=== PATIENT | female | born 2000 | race Caucasian/White ===

== ENCOUNTER 2024-12-08 13:25 | Outpatient (CLI) | payer BC, SELFPAY ==
--- OUTSIDE RECORDS SUMMARY | 2024-10-25 23:54 | XMS_ITS | Encounter Summary ---
Author Organization Healthcare Address [address] [place] [address] Care Team Providers Care Merchandise Pickup/Receiving Associate Name Role Phone Fan Gilliam MD Primary Care Provider [phone] Reason for Visit * Reason Comments Difficulty Urinating Encounter Details Date Type Department Care Team (Late st Contact Info) Description 10/25/2024 11:54 PM EDT - 10/26/2024 2:16 AM EDT Emergency [facility] Emergency Department [address] [place] [address] Vaginal irritation (Primary Dx) Discharge Disposition: Home or Self Care Social History Tobacco Use Types Packs/Day Years Used Date Smoking Tobacco: Former Smokeless Tobacco: Never Tobacco Cessation:Counseling Given: Not Answered Comments No Sex and Gender Information Value Date Recorded Sex Assigned at Not on file Legal Sex Female 6:34 PM EDT Gender Identity Not on file Sexual Orientation Not on file documented as of this encounter Last Filed Vital Signs Vital Sign Reading Time Taken Comments Blood Pressure 139/100 10/25/2024 10:01 PM EDT Pulse 95 10/25/2024 10:01 PM EDT Temperature 36.8 C (98.2 F) 10/25/2024 10:01 PM EDT Respiratory Rate 18 10/25/2024 10:0 1 PM EDT Oxygen Saturation 98% 10/25/2024 10: 01 PM EDT Inhaled Oxygen Concentration - - Weight 62.5 kg (137 lb 12.6 oz) 025 12:13 AM EDT Height - - Body Mass Index 27.83 02/19/2018 8:42 AM EDT documented in this encounter Functional Status * Calculated C-SSRS Risk Score (Lifetime/Recent) Answer Date of Assessment Author No Risk Indicated 10/26/2024 12:12 AM EDT Khang Young RN * Question Answer Date of Assessment Author 1. Wish to be (Past 1 Month) No 12:12 AM EDT Khang Young RN 2. Non-Specific Active Suici phillip Thoughts (Past 1 Month) No 10/26/2024 12:12 AM EDT Khang Young RN 6. Suicidal Behavior (Lifetime) No 12:12 AM EDT Khang Young RN documented as of this encounter Discharge Instructions * Discharge Instructions* Bebeto Pena PA - 10/26/2024 2:00 AM EDT Please continue to manage your symptoms at home as we discussed. Otherwise, follow up with your PCP. Return to the nearest emergency department if you develop new or worsening symptoms. documented in this encounter Miscellaneous Notes * ED Provider Notes - Bebeto Pena PA - 10/25/2024 9:46 PM EDT Images from the original note were not included. - HPI Chief Complaint Patient presents with Difficulty Urinating Jamila Bowers is a 23 y.o. female who presents to the emergency department today with concern for dysuria and vaginal irritation. She also has noted some blood in her urine. She reports that she just ended her menstrual cycle. She reports that it is possible that she could have a sexually transmitted infection and would like to be tested today, however denies wanting treatment prior tohaving her results. She states that placing ice packs over the area improves her symptoms. She denies any fevers or vaginal discharge. She denies any flank pain. She otherwise has no acute complaintsat this time. History provided by: Patient marketing copywriter used: No Patient History Past Medical History[1] Surgical History[2] Family History[3] Social History[4] Allergies: Allergies[5] Physical Exam ED Triage Vitals [10/25/24 2201] Temp Heart Rate Resp BP 36.8 ??C (98.2 ??F) 95 18 (!) 139/100 SpO2 Temp Source Heart Rate Source Patient Position 98 % Oral Monitor Sitting BP Location FiO2 (%) Right arm -- Physical Exam Vitals and nursing note reviewed. Exam conducted with a clinic cma present. Constitutional: General: She is not in acute distress. Appearance: She is not ill-appearing, toxic-appearing or diaphoretic. HENT: Head: Normocephalic and atraumatic. Nose: No rhinorrhea. Mouth/Throat: Mouth: Mucous membranes are moist. Eyes: Extraocular Movements: Extraocular movements intact. Cardiovascular: Rate and Rhythm: Normal rate. Pulmonary: Effort: Pulmonary effort is normal. No respiratory distress. Abdominal: General: There is no distension. Palpations: Abdomen is soft. Tenderness: There is no abdominal tenderness. There is no guarding. Genitourinary: Labia: Right: No lesion. Left: No lesion. Comments: External labial erythema without any wounds or vesicular lesions noted, no obvious discharge Musculoskeletal: General: Normal range of motion. Cervical back: Normal range of motion and neck supple. No rigidity. Skin: General: Skin is warm and dry. Neurological: General: No focal deficit present. Mental Status: She is alert and oriented to person, place, and time. Psychiatric: Mood and Affect: Mood normal. Kimberly Coma Scale Score: 15 ED Course & MDM - Assessment: 23 y.o. female presents to ED with complaint of dysuria and vaginal irritation since earlier this morning. On arrival to the emergency department, the patient was awake, appropriately conversational, not inany acute distress, and nontoxic in appearance. Hypertensive, otherwise hemodynamically stable. examination performed with a clinic cma which shows some external labial erythema and signs of irritation, however no lesions or other obvious signs of infection. Labs and urinalysis obtained. Very mild leukocytosis, urine with 6-10 white blood cells, however negative nitrites and bacteria. Not consistent with a UTI. Chlamydia and gonorrhea swabs pending at this time, however the patient states that she prefers to wait for the swabs to return prior to starting treatment. I felt that this was appropriate. She was instructed on how to further manage her symptoms at home. She verbalized agreement and understanding of this plan. She was given strict return precautions, and discharged from the emergency department in stable condition. Differential Diagnosis: Nephrolithiasis, UTI, STI, vaginal candidiasis, vaginitis, among others. In order to fully explore the differential diagnosis the following treatments and tests were ordered: All Other Orders Ordered Status Ordering Provider 10/26/24 0034 Urinalysis Microscopic Examination Once Final result REBECCA LANDERS 10/26/24 0020 Chlamydia trachomatis DNA by PCR STAT In process BEBETO PENA 10/26/24 0020 Neisseria gonorrhea DNA by PCR STAT In process BEBETO PENA 10/26/24 0020 CBC w/diff STAT Final result BEBETO PENA 10/26/24 0020 CMP STAT Final result BEBETO PENA 10/26/24 0020 hCG qualitative STAT Final result BEBETO PENA 10/25/24 2202 Urinalysis with reflex microscopic AND reflex culture (IF UTI SUSPECTED) Once Final result REBECCA LANDERS 10/25/24 220 Urinalysis with reflex microscopic (Culture NOT Included) PROCEDURE ONCE Final result REBECCA LANDERS 10/25/24 220 Urine Eagle Panel PROCEDURE ONCE Final result REBECCA LANDERS ED Course as of 10/26/24 0232 Sun Oct 26, 2024 0041 WBC(!): 12.19 [ML] 0041 Hemoglobin: 13.6 [ML] 0041 Blood, Urine(!): Moderate [ML] 0041 Leukocytes, Urine(!): Moderate [ML] 0041 Nitrite, Urine: Negative [ML] 0048 Nitrite, Urine: Negative [ML] 0049 WBC, Urine(!): 6 - 10 [ML] 0049 Bacteria, Urine: Negative [ML] 0055 BUN(!): 6 [ML] 0055 Creatinine: 0.69 [ML] 0055 Test: Negative [ML] ED Course User Index [ML] Bebeto Pena PA Clinical Impressions as of 10/26/24 0232 Vaginal irritation Social Determinates of Health Risks (including Economic Stability, Education and level of understanding, Healthcare access and quality and concerning social factors): None identified on this visit Ultimately, this patient was Was discharged Home (Discharge) The encounter diagnosis was Vaginal irritation. . Patient was counseled on the diagnoses. Discharge medications if any are listed below. Listed medications are thought be either curative for listed diagnoses or will help control ongoing symptoms. Patient is requested to follow up with Patient's Primary Care Provider in order to obtain routine follow-up. Instructions on follow up as well as precautions to return to the ER provided verbally by the EM provider, as well as written in patients discharge education packet. ED Prescriptions None Discharge Instructions Please continue to manage your symptoms at home as we discussed. Otherwise, follow up with your PCP. Return to the nearest emergency department if you develop new or worsening symptoms. Disposition Discharge AVS (Prydeinig Snapshot) - Printed 10/26/2024 Follow-Ups: Follow up with Fan Gilliam MD; Please follow-up. - [1] Past Medical History: Diagnosis Date Personal history of other mental and behavioral disorders History of depression Personal history of other mental and behavioral disorders History of reactive attachment disorder Poisoning by propionic acid derivatives, accidental (unintentional), initial encounter Advil overdose [2] Past Surgical History: Procedure Laterality Date TONSILLECTOMY N/A Tonsillectomy from [employer] [3] Family History Problem Relation Name Age of Onset Diabetes Maternal Grandfather Diabetes Other [4] Tobacco Use Smoking status: Former Smokeless tobacco: Never [5] Allergies Allergen Reactions Sulfacetamide Unknown - Patient states they do not know rxn details Bebeto Pena PA 10/26/24 0232 Cosigned by More Calrson MD at 11/01/2024 4:39 PM EDT Associated attestation - More Carlson MD - 11/01/2024 4:39 PM EDT The patient was seen only by Advanced Practice Provider (SILVIANO), and care was reviewed with me. * ED Triage Notes - Tonya Blake RN - 10/25/2024 9:46 PM EDT Pt presents to the ER for possible hematuria, polyuria, and dysuria that started today. Just got off menstrual cycle. Denies of a fever. documented in this encounter Plan of Treatment Not on file documented as of this encounter Procedures Procedure Name Priority Date/Time Associated Diagnosis Comments CBC WITH AUTO DIFFERENTIAL STAT 10/26/2024 12:28 AM EDT TEST QUALITATIVE PLASMA STAT 10/26/2024 12:28 AM EDT COMPREHENSIVE METABOLIC PANEL, PLASMA STAT 10/26/2024 12:28 AM EDT CHLAMYDIA TRACHOMATIS DNA BY PCR STAT 10/26/2024 12:20 AM EDT NEISSERIA GONORRHEA DNA BY PCR STAT 10/26/2024 12:20 AM EDT URINALYSIS WITH REFLEX MICROSCOPIC AND CULTURE STAT 10/26/2024 12:15 AM EDT URINE EAGLE PANEL STAT 10/26/2024 12:1 5 AM EDT URINALYSIS MICROSCOPIC FOR UA REFLEX STAT 10/26/2024 12:15 AM EDT URINALYSIS WITH REFLEX MICROSCOPIC STAT 10/26/2024 12:15 AM EDT documented in this encounter Results * hCG qualitative (10/26/2024 12:28 AM EDT) Test Negative Negative 10/26/2024 12:53 AM EDT [facility] Blood Venous blood specimen / Unknown Venipuncture / Unknown 10/26/2024 12:28 AM EDT 10/26/2024 12:31 AM EDT Narrative [facility] - 10/26/2024 12:53 AM EDT Reference Range: Males and non- females: Negative. Bebeto PHAM LAB BLOOD ORDERABLES Final Result [facility] [address] [place] [address] * (ABNORMAL) CMP (10/26/2024 12:28 AM EDT) Glucose, Plasma 93 74 - 99 mg/dL 10/26/2024 12:53 AM EDT [facility] BUN, Plasma 6(L) 7 - 21 mg/dL 10/26/2024 12:53 AM EDT [facility] Creatinine, Plasma 0.69 0.60 - 1.10 mg/dL 10/26/2024 12:53 AM EDT [facility] BUN/Creatinine Ratio 9 10/26/2024 12:53 AM EDT [facility] Sodium, Plasma 138 136 - 145 mmol/L 10/26/2024 12:53 AM EDT [facility] Potassium, Plasma 3.8 3.6 - 4.9 mmol/L 10/26/2024 12:53 AM EDT [facility] Chloride, Plasma 102 97 - 107 mmol/L 10/26/2024 12:53 AM EDT [facility] CO2, Plasma 26 22 - 29 mmol/L 10/26/2024 12:53 AM EDT [facility] Anion Gap 10 6 - 16 mmol/L 10/26/2024 12:53 AM EDT [facility] Total Calcium, Plasma 9.9 8.9 - 10.2 mg/dL 10/26/2024 12:53 AM T [facility] Total Protein 7.5 6.3 - 7.9 g/dL 10/26/2024 12:53 AM T [facility] Albumin, Plasma 4.8 3.5 - 5.2 g/dL 10/26/2024 12:53 AM T [facility] AST, Plasma 14 10 - 35 U/L 10/26/2024 12:53 AM T [facility] ALT, Plasma 13 10 - 35 U/L 10/26/2024 12:53 AM T [facility] Alkaline Phosphatase, Plasma 83 35 - 104 U/L 10/26/2024 12:53 AM T [facility] Total Bilirubin, Plasma 0.3 0.2 - 1.1 mg/dL 10/26/2024 12:53 AM T [facility] eGFRcr 123.7 mL/min/1.7 3m*2 10/26/2024 12:53 AM T [facility] Comment:Reported eGFRcr in m L/min/1.73m2 is based the CKD-EPI 2020 equation that does not use a race coefficient. Blood Venous blood specimen / Unknown Venipuncture / Unknown 10/26/2024 12:28 AM EDT 10/26/2024 12:31 AM EDT Bebeto PHAM LAB BLOOD ORDERABLES Final Result [facility] [address] [place] [address] * (ABNORMAL) CBC w/diff (10/26/2024 12:28 AM EDT) WBC Count 12.19(H) 3.70 - 10.30 10*3/uL LAB HEMATOLOGY METHOD 10/26/2024 12:33 AM EDT [facility] RBC Count 4.23 3.90 - 5.20 10*6/uL LAB HEMATOLOGY METHOD 10/26/2024 12:33 AM EDT [facility] HGB 13.6 11.2 - 15.7 g/dL LAB HEMATOLOGY METHOD 10/26/2024 12:33 AM EDT [facility] HCT 40.2 34.0 - 45.0 % LAB HEMATOLOGY METHOD 10/26/2024 12:33 AM EDT [facility] Platelet Count 323 155 - 369 10*3/uL LAB HEMATOLOGY METHOD 10/26/2024 12:33 AM EDT [facility] MCV 95 79 - 98 fL LAB HEMATOLOGY METHOD 10/26/2024 12:33 AM EDT [facility] MCH 32.2(H) 26.0 - 32.0 pg LAB HEMATOLOGY METHOD 10/26/2024 12:33 AM EDT [facility] MCHC 33.8 30.7 - 35.5 g/dL LAB HEMATOLOGY METHOD 10/26/2024 12:33 AM EDT [facility] RDW 12.5 11.5 - 14.5 % LAB HEMATOLOGY METHOD 10/26/2024 12:33 AM EDT [facility] MPV 9.9 8.8 - 12.5 fL LAB HEMATOLOGY METHOD 10/26/2024 12:33 AM EDT [facility] nRBC 0.0 <=0.0 per 100 WBCs LAB HEMATOLOGY METHOD 10/26/2024 12:33 AM EDT [facility] Differential Type Automated LAB HEMATOLOGY METHOD 10/26/2024 12:33 AM EDT [facility] Neutrophils % 63 % LAB HEMATOLOGY METHOD 10/26/2024 12:33 AM EDT [facility] Lymphocytes % 29 % LAB HEMATOLOGY METHOD 10/26/2024 12:33 AM EDT [facility] Monocytes % 7 % LAB HEMATOLOGY METHOD 10/26/2024 12:33 AM EDT [facility] Eosinophils % 1 % LAB HEMATOLOGY METHOD 10/26/2024 12:33 AM EDT [facility] Basophils % 0 % LAB HEMATOLOGY METHOD 10/26/2024 12:33 AM EDT [facility] Immature Granulocytes % 0 % LAB HEMATOLOGY METHOD 10/26/2024 12:33 AM EDT [facility] Neutrophils Absolute 7.67(H) 1.60 - 6.10 10*3/uL LAB HEMATOLOGY METHOD 10/26/2024 12:33 AM EDT [facility] Lymphocytes Absolute 3.49 1.20 - 3.90 10*3/uL LAB HEMATOLOGY METHOD 10/26/2024 12:33 AM EDT [facility] Monocytes Absolute 0.82 0.30 - 0.90 10*3/uL LAB HEMATOLOGY METHOD 10/26/2024 12:33 AM EDT [facility] Eosinophils Absolute 0.12 0.00 - 0.50 10*3/uL LAB HEMATOLOGY METHOD 10/26/2024 12:33 AM EDT [facility] Basophils Absolute 0.04 0.00 - 0.10 10*3/uL LAB HEMATOLOGY METHOD 10/26/2024 12:33 AM EDT [facility] Immature Granulocytes Absolute 0.05 0.00 - 0.06 10*3/uL LAB HEMATOLOGY METHOD 10/26/2024 12:33 AM EDT [facility] Blood Venous blood specimen / Unknown Venipuncture / Unknown 10/26/2024 12:28 AM EDT 10/26/2024 12:31 AM EDT Narrative [facility] - 10/26/2024 12:33 AM EDT Therapeutic decision making should be based on absolute values, rather than percentages. Bebeto PHAM LAB BLOOD ORDERABLES Final Result [facility] [address] [place] [address] * Neisseria gonorrhea DNA by PCR (10/26/2024 12:20 AM EDT) Neisseria gonorrhea DNA PCR Result Not Detected Not Detected. 10/27/2024 12:54 PM EDT [facility] Urine Urine specimen obtained by clean catch procedure / Unknown Non-blood Collection / Unknown 10/26/2024 12:20 AM EDT 10/26/2024 12:32 AM EDT Narrative [facility] - 10/27/2024 12:54 PM EDT This test is performed by the [employer] instrument for Real Time PCR C. trachomatis and N. gonorrhea. This test is FDA approved for use with endocervical, vaginal, and urine specimens. This test is used for clinical purposes. It should not be regarded as invesigational or for research. The [facility] Clinical Microbiology Laboratory is certified under the Clinical Laboratory Improvement Amendments of 1988 (CLIA-88) as qualified to perform high complexity clinical laboratory testing. Bebeto PHAM [facility] MICROBIOLOGY - GENERAL ORDERABLES Final Result Performing Organization Address [facility] [place] [address] * Chlamydia trachomatis DNA by PCR (10/26/2024 12:20 AM EDT) Chlamydia trachomatis DNA PCR Result Not Detected Not Detected 10/27/2024 12:54 PM EDT [facility][1] Urine Urine specimen obtained by clean catch procedure / Unknown Non-blood Collection / Unknown 10/26/2024 12:20 AM EDT 10/26/2024 12:32 AM EDT Narrative [facility][1] - 10/27/2024 12:54 PM EDT This test is performed by the [employer] m2000 instrument for Real Time PCR C. trachomatis and N. gonorrhea. This test is FDA approved for use with endocervical, vaginal, and urine specimens. This test is used for clinical purposes. It should not be regarded as invesigational or for research. The [facility] Clinical Microbiology Laboratory is certified under the Clinical Laboratory Improvement Amendments of 1988 (CLIA-88) as qualified to perform high complexity clinical laboratory testing. Bebeto PHAM LAB MICROBIOLOGY - GENERAL ORDERABLES Final Result Performing Organization Address [facility] Co de Phone Number [facility][1] [address] [place] [address] * Urinalysis Microscopic Examination (10/26/2024 12:15 AM EDT) Urine Urine specimen obtained by clean catch procedure / Unknown Non-blood Collection / Unknown 10/26/2024 12:15 AM EDT 10/26/2024 12:31 AM EDT us Rebecca Landers MD LAB URINE ORDERABLES Final Resul t Performing Organization Address City/[facility] Co de Phone Number [facility] [address] [place] [address] * Urine Eagle Panel (10/26/2024 12:15 AM EDT) Extra Reflex urine culture not indicated 10/26/2024 2:01 AM EDT [facility] Urine Urine specimen obtained by clean catch procedure / Unknown Non-blood Collection / Unknown 10/26/2024 12:15 AM EDT 10/26/2024 12:31 AM EDT us Rebecca Landers MD LAB URINE ORDERABLES Final Resul t Performing Organization Address [facility] Phone Number [facility] [address] [place] [address] * (ABNORMAL) Urinalysis with reflex microscopic (Culture NOT Included) (10/26/2024 12:15 AM EDT) Color, Urine Yellow LAB URINALYSIS - AUTOMATED METHOD 10/26/2024 12:47 AM EDT [facility] Clarity, Urine Clear LAB URINALYSIS - AUTOMATED METHOD 10/26/2024 12:47 AM EDT [facility] Spec [place], Urine <1.005(L) 1.005 - 1.030 LAB URINALYSIS - AUTOMATED METHOD 10/26/2024 12:47 AM EDT [facility] pH, Urine 7.0 5.0 - 8.0 LAB URINALYSIS - AUTOMATED METHOD 10/26/2024 12:47 AM EDT [facility] Protein, Urine Negative Negative mg/dL LAB URINALYSIS - AUTOMATED METHOD 10/26/2024 12:47 AM EDT [facility] Glucose, Urine Negative Negative mg/dL LAB URINALYSIS - AUTOMATED METHOD 10/26/2024 12:47 AM EDT [facility] Ketones, Urine Negative Negative mg/dL LAB URINALYSIS - AUTOMATED METHOD 10/26/2024 12:47 AM EDT [facility] Blood, Urine Moderate(A) Negative LAB URINALYSIS - AUTOMATED METHOD 10/26/2024 12:47 AM EDT [facility] Bilirubin, Urine Negative Negative LAB URINALYSIS - AUTOMATED METHOD 10/26/2024 12:47 AM EDT [facility] Urobilinogen, Urine 0.2 0.2 to 1.0 mg/dL LAB URINALYSIS - AUTOMATED METHOD 10/26/2024 12:47 AM EDT [facility] Leukocytes, Urine Moderate(A) Negative LAB URINALYSIS - AUTOMATED METHOD 10/26/2024 12:47 AM EDT [facility] Nitrite, Urine Negative Negative LAB URINALYSIS - AUTOMATED METHOD 10/26/2024 12:47 AM EDT [facility] RBC, Urine 3 0 to 3 /HPF 10/26/2024 12:47 AM EDT [facility] Comment:This result was prev iously suppressed from the chart. WBC, Urine 6 - 10(A) 0 to 5 /HPF 10/26/2024 12:47 AM EDT [facility] Comment:This result was prev iously suppressed from the chart. Squamous Epithelial Cells 0 - 2 0 to 5 /HPF 10/26/2024 12:47 AM EDT [facility] Comment:This result was prev iously suppressed from the chart. Hyaline Casts 0 - 2 0 to 5 /LPF 10/26/2024 12:47 AM EDT [facility] Comment:This result was prev iously suppressed from the chart. Bacteria, Urine Negative Negative 10/26/2024 12:47 AM EDT [facility] Comment:This result was prev iously suppressed from the chart. Urine Urine specimen obtained by clean catch procedure / Unknown Non-blood Collection / Unknown 10/26/2024 12:15 AM EDT 10/26/2024 12:31 AM EDT Narrative [facility] - 10/26/2024 12:47 AM EDT Performed by manual method us Rebecca Landers MD LAB URINE ORDERABLES Final Resul t [facility] [address] [place] [address] documented in this encounter Visit Diagnoses Diagnosis Vaginal irritation- Primary Pruritus of genital organs documented in this encounter Care Teams Merchandise Pickup/Receiving Associate Relationship Specialty Start Date End Date Fan Gilliam MD [address] [place] [address] [address] [place] [id number] PCP - General 09/03/20 documented as of this encounter
--- OUTSIDE RECORDS SUMMARY | 2024-12-10 09:55 | XMS_ITS | Patient Health Record ---
Author Organization [facility] Address [address] [place] [address] Support Name Relationship Address Phone Patel Bowers Emergency Contact [address] [place] [address] Jamila Bowers Guarantor Unknown Reason For Referral No Information Problems Problem Type SNOMED Code ICD Code Onset Dates Problem Status W/U Status Risk Notes Problem Fibromyalgia (182178749) Fibromyalgia (M79.7) Active confirmed Problem Urge incontinence of urine (66275957) Urge incontinence (N39.41) Active confirmed Problem Moderate recurrent major depression (55587390) Moderate episode of recurrent major depressive disorder (F33.1) Active confirmed Problem Pain in female genitalia on intercourse (30927687) Dyspareunia in female (N94.10) Active confirmed Problem Generalized anxiety disorder (54688469) LUCILLE (generalized anxiety disorder) (F41.1) Active confirmed Problem Postural orthostatic tachycardia syndrome (disorder) (803678871) POTS (postural orthostatic tachycardia syndrome) (I49.8) Active confirmed Plan Of Treatment No Information
--- OUTSIDE RECORDS SUMMARY | 2024-12-10 09:55 | XMS_ITS | Clinical Summary ---
Author Organization Healthcare Address [address] [place] [address] Care Team Providers Care Machine Tool Operator Name Role Phone Fan Gilliam MD Primary Care Provider [phone] Allergies Active Allergy Reactions Criticality Noted Date Comments Sulfacetamide Unknown - Patient st ates they do not know rxn details Low 02/19/2018 Encounters Date Type Department Care Team Description 10/25/2024 11:54 PM EDT - 10/26/2024 2:16 AM EDT Emergency [facility] Emergency Department [address] [place] [address] Vaginal irritation (Primary Dx) Discharge Disposition: Home or Self Care 10/25/2024 Travel from Last 3 Months Family History Medical History Relation Name Comments Diabetes Maternal Grandfather Diabetes Other Relation Name Status Comments Maternal Grandfather Other Social History Tobacco Use Types Packs/Day Years Used Date Smoking Tobacco: Former Smokeless Tobacco: Never Tobacco Cessation:Counseling Given: Not Answered Comments No Sex and Gender Information Value Date Recorded Sex Assigned at Not on file Legal Sex Female 6:34 PM EDT Gender Identity Not on file Sexual Orientation Not on file Last Filed Vital Signs Vital Sign Reading [...] 12.6 oz) 025 12:13 AM EDT Height 149.9 cm (4' 11 ) 02/19/2018 8:42 AM EDT Body Mass Index 27.83 02/19/2018 8:42 AM EDT Plan of Treatment Not on file Procedures Procedure Name Priority Date/Time Associated Diagnosis Comments TEST QUALITATIVE PLASMA STAT 10/26/2024 12:28 AM EDT COMPREHENSIVE METABOLIC PANEL, PLASMA STAT 10/26/2024 12:28 AM EDT CBC WITH AUTO DIFFERENTIAL STAT 10/26/2024 12:28 AM EDT NEISSERIA GONORRHEA DNA BY PCR STAT 10/26/2024 12:20 AM EDT CHLAMYDIA TRACHOMATIS DNA BY PCR STAT 10/26/2024 12:20 AM EDT URINALYSIS MICROSCOPIC FOR UA REFLEX STAT 10/26/2024 12:15 AM EDT URINE EAGLE PANEL STAT 10/26/2024 12:1 5 AM EDT URINALYSIS WITH REFLEX MICROSCOPIC STAT 10/26/2024 12:15 AM EDT URINALYSIS WITH REFLEX MICROSCOPIC AND CULTURE STAT 10/26/2024 12:15 AM EDT from Last 3 Months Results * (ABNORMAL) CBC w/diff (10/26/2024 12:28 AM EDT) WBC Count 12.19(H) 3.70 - 10.30 10*3/uL LAB HEMATOLOGY METHOD 10/26/2024 12:33 AM EDT [facility] RBC Count 4.23 3.90 - 5.20 10*6/uL LAB HEMATOLOGY METHOD 10/26/2024 12:33 AM EDT [facility] HGB 13.6 11.2 - 15.7 g/dL LAB HEMATOLOGY METHOD 10/26/2024 12:33 AM EDT [facility] HCT 40.2 34.0 - 45.0 % LAB HEMATOLOGY METHOD 10/26/2024 12:33 AM EDT [facility] Platelet Count 323 155 - 369 10*3/uL LAB HEMATOLOGY METHOD 10/26/2024 12:33 AM EDT [facility] MCV 95 79 - 98 fL LAB HEMATOLOGY METHOD 10/26/2024 12:33 AM EDT [facility] MCH 32.2(H) 26.0 - 32.0 pg LAB HEMATOLOGY METHOD 10/26/2024 12:33 AM EDT [facility] MCHC 33.8 30.7 - 35.5 g/dL LAB HEMATOLOGY METHOD 10/26/2024 12:33 AM EDT [facility] RDW 12.5 11.5 - 14.5 % LAB HEMATOLOGY METHOD 10/26/2024 12:33 AM EDT [facility] MPV 9.9 8.8 - 12.5 fL LAB HEMATOLOGY METHOD 10/26/2024 12:33 AM EDT [facility] nRBC 0.0 <=0.0 per 100 WBCs LAB HEMATOLOGY METHOD 10/26/2024 12:33 AM EDT [facility] Differential Type Automated LAB HEMATOLOGY METHOD 10/26/2024 12:33 AM EDT [facility] Neutrophils % 63 % LAB HEMATOLOGY METHOD 10/26/2024 12:33 AM EDT [facility] Lymphocytes % 29 % LAB HEMATOLOGY METHOD 10/26/2024 12:33 AM EDT [facility] Monocytes % 7 % LAB HEMATOLOGY METHOD 10/26/2024 12:33 AM EDT [facility] Eosinophils % 1 % LAB HEMATOLOGY METHOD 10/26/2024 12:33 AM EDT [facility] Basophils % 0 % LAB HEMATOLOGY METHOD 10/26/2024 12:33 AM EDT [facility] Immature Granulocytes % 0 % LAB HEMATOLOGY METHOD 10/26/2024 12:33 AM EDT [facility] Neutrophils Absolute 7.67(H) 1.60 - 6.10 10*3/uL LAB HEMATOLOGY METHOD 10/26/2024 12:33 AM EDT [facility] Lymphocytes Absolute 3.49 1.20 - 3.90 10*3/uL LAB HEMATOLOGY METHOD 10/26/2024 12:33 AM EDT [facility] Monocytes Absolute 0.82 0.30 - 0.90 10*3/uL LAB HEMATOLOGY METHOD 10/26/2024 12:33 AM EDT [facility] Eosinophils Absolute 0.12 0.00 - 0.50 10*3/uL LAB HEMATOLOGY METHOD 10/26/2024 12:33 AM EDT [facility] Basophils Absolute 0.04 0.00 - 0.10 10*3/uL LAB HEMATOLOGY METHOD 10/26/2024 12:33 AM EDT [facility] Immature Granulocytes Absolute 0.05 0.00 - 0.06 10*3/uL LAB HEMATOLOGY METHOD 10/26/2024 12:33 AM EDT [facility] Blood Venous blood specimen / Unknown Venipuncture / Unknown 10/26/2024 12:28 AM EDT 10/26/2024 12:31 AM EDT Narrative [facility] - 10/26/2024 12:33 AM EDT Therapeutic decision making should be based on absolute values, rather than percentages. Mirela PHAM LAB BLOOD ORDERABLES Final Result Performing Organization Address City/[facility]/ZIP Co de Phone Number [facility] [address] [place] [address] * hCG qualitative (10/26/2024 12:28 AM EDT) Test Negative Negative 10/26/2024 12:53 AM EDT [facility] Blood Venous blood specimen / Unknown Venipuncture / Unknown 10/26/2024 12:28 AM EDT 10/26/2024 12:31 AM EDT Narrative [facility] - 10/26/2024 12:53 AM EDT Reference Range: Males and non- females: Negative. Mirela PHAM LAB BLOOD ORDERABLES Final Result Performing Organization Address City/[facility]/ZIP Co de Phone Number [facility] [address] [place] [address] * (ABNORMAL) CMP (10/26/2024 12:28 AM EDT) Glucose, Plasma 93 74 - 99 mg/dL 10/26/2024 12:53 AM EDT [facility] BUN, Plasma 6(L) 7 - 21 mg/dL 10/26/2024 12:53 AM EDT [facility] Creatinine, Plasma 0.69 0.60 - 1.10 mg/dL 10/26/2024 12:53 AM EDT [facility] BUN/Creatinine Ratio 9 10/26/2024 12:53 AM EDT [facility] Sodium, Plasma 138 136 - 145 mmol/L 10/26/2024 12:53 AM EDT [facility] Potassium, Plasma 3.8 3.6 - 4.9 mmol/L 10/26/2024 12:53 AM EDT [facility] Chloride, Plasma 102 97 - 107 mmol/L 10/26/2024 12:53 AM EDT [facility] CO2, Plasma 26 22 - 29 mmol/L 10/26/2024 12:53 AM EDT [facility] Anion Gap 10 6 - 16 mmol/L 10/26/2024 12:53 AM EDT [facility] Total Calcium, Plasma 9.9 8.9 - 10.2 mg/dL 10/26/2024 12:53 AM EDT [facility] Total Protein 7.5 6.3 - 7.9 g/dL 10/26/2024 12:53 AM EDT [facility] Albumin, Plasma 4.8 3.5 - 5.2 g/dL 10/26/2024 12:53 AM EDT [facility] AST, Plasma 14 10 - 35 U/L 10/26/2024 12:53 AM EDT [facility] ALT, Plasma 13 10 - 35 U/L 10/26/2024 12:53 AM EDT [facility] Alkaline Phosphatase, Plasma 83 35 - 104 U/L 10/26/2024 12:53 AM EDT [facility] Total Bilirubin, Plasma 0.3 0.2 - 1.1 mg/dL 10/26/2024 12:53 AM EDT [facility] eGFRcr 123.7 mL/min/1.7 3m*2 10/26/2024 12:53 AM EDT [facility] Comment:Reported eGFRcr in m L/min/1.73m2 is based the CKD-EPI 2020 equation that does not use a race coefficient. Blood Venous blood specimen / Unknown Venipuncture / Unknown 10/26/2024 12:28 AM EDT 10/26/2024 12:31 AM EDT us Mirela PHAM LAB BLOOD ORDERABLES Final Result [facility] [address] [place] [address] * Chlamydia trachomatis DNA by PCR (10/26/2024 12:20 AM EDT) Chlamydia trachomatis DNA PCR Result Not Detected Not Detected 10/27/2024 12:54 PM EDT [facility] Urine Urine specimen obtained by clean catch procedure / Unknown Non-blood Collection / Unknown 10/26/2024 12:20 AM EDT 10/26/2024 12:32 AM EDT Narrative [facility] - 10/27/2024 12:54 PM EDT This test is performed by the [email or web address] instrument for Real Time PCR C. trachomatis and N. gonorrhea. This test is FDA approved for use with endocervical, vaginal, and urine specimens. This test is used for clinical purposes. It should not be regarded as invesigational or for research. The [facility] Clinical Microbiology Laboratory is certified under the Clinical Laboratory Improvement Amendments of 1988 (CLIA-88) as qualified to perform high complexity clinical laboratory testing. Mirela PHAM LAB MICROBIOLOGY - GENERAL ORDERABLES Final Result Performing Organization Address City/State/[facility] Co de Phone Number [facility] [address] [place] [id number] * Neisseria gonorrhea DNA by PCR (10/26/2024 12:20 AM EDT) Neisseria gonorrhea DNA PCR Result Not Detected Not Detected. 10/27/2024 12:54 PM EDT [facility] Urine Urine specimen obtained by clean catch procedure / Unknown Non-blood Collection / Unknown 10/26/2024 12:20 AM EDT 10/26/2024 12:32 AM EDT Narrative [facility] - 10/27/2024 12:54 PM EDT This test is performed by the [employer] m2000 instrument for Real Time PCR C. trachomatis and N. gonorrhea. This test is FDA approved for use with endocervical, vaginal, and urine specimens. This test is used for clinical purposes. It should not be regarded as invesigational or for research. The [facility] Clinical Microbiology Laboratory is certified under the Clinical Laboratory Improvement Amendments of 1988 (CLIA-88) as qualified to perform high complexity clinical laboratory testing. Mirela PHAM LAB MICROBIOLOGY - GENERAL ORDERABLES Final Result Performing Organization Address City/[facility]/ZIP Co de Phone Number [facility] [address] [place] [address] * Urine Eagle Panel (10/26/2024 12:15 AM EDT) Extra Reflex urine culture not indicated 10/26/2024 2:01 AM EDT [facility] Urine Urine specimen obtained by clean catch procedure / Unknown Non-blood Collection / Unknown 10/26/2024 12:15 AM EDT 10/26/2024 12:31 AM EDT Rebecca Landers MD LAB URINE ORDERABLES Final Resul t Performing Organization Address [facility] Co de Phone Number [facility] [address] [place] [address] * Urinalysis Microscopic Examination (10/26/2024 12:15 AM EDT) Urine Urine specimen obtained by clean catch procedure / Unknown Non-blood Collection / Unknown 10/26/2024 12:15 AM EDT 10/26/2024 12:31 AM EDT Rebecca Landers MD LAB URINE ORDERABLES Final Resul t Performing Organization Address [facility] de Phone Number [facility] [address] [place] [address] * (ABNORMAL) Urinalysis with reflex microscopic (Culture NOT Included) (10/26/2024 12:15 AM EDT) Color, Urine Yellow LAB URINALYSIS - AUTOMATED METHOD 10/26/2024 12:47 AM EDT [facility] Clarity, Urine Clear LAB URINALYSIS - AUTOMATED METHOD 10/26/2024 12:47 AM EDT [facility] Spec [place], Urine <1.005(L) 1.005 - 1.030 LAB URINALYSIS - AUTOMATED METHOD 10/26/2024 12:47 AM EDT [facility] pH, Urine 7.0 5.0 - 8.0 LAB URINALYSIS - AUTOMATED METHOD 10/26/2024 12:47 AM EDT [facility] Protein, Urine Negative Negative mg/dL LAB URINALYSIS - AUTOMATED METHOD 10/26/2024 12:47 AM EDT [facility] Glucose, Urine Negative Negative mg/dL LAB URINALYSIS - AUTOMATED METHOD 10/26/2024 12:47 AM EDT [facility] Ketones, Urine Negative Negative mg/dL LAB URINALYSIS - AUTOMATED METHOD 10/26/2024 12:47 AM EDT [facility] Blood, Urine Moderate(A) Negative LAB URINALYSIS - AUTOMATED METHOD 10/26/2024 12:47 AM EDT [facility] Bilirubin, Urine Negative Negative LAB URINALYSIS - AUTOMATED METHOD 10/26/2024 12:47 AM EDT [facility] Urobilinogen, Urine 0.2 0.2 to 1.0 mg/dL LAB URINALYSIS - AUTOMATED METHOD 10/26/2024 12:47 AM EDT [facility] Leukocytes, Urine Moderate(A) Negative LAB URINALYSIS - AUTOMATED METHOD [facility], Urine Negative Negative [facility]ALYSIS - AUTOMATED METHOD [facility] RBC, Urine 3 0 to 3 /HPF 10/26/2024 12:47 AM EDT [facility] Comment:This result was prev iously suppressed from the chart. WBC, Urine 6 - 10(A) 0 to 5 /HPF 10/26/2024 12:47 AM EDT [facility] Comment:This result was prev iously suppressed from the chart. Squamous Epithelial Cells 0 - 2 0 to 5 /HPF 10/26/2024 12:47 AM EDT [facility] Comment:This result was prev iously suppressed from the chart. Hyaline Casts 0 - 2 0 to 5 /LPF 10/26/2024 12:47 AM EDT [facility] Comment:This result was prev iously suppressed from the chart. Bacteria, Urine Negative Negative 10/26/2024 12:47 AM EDT [facility] Comment:This result was prev iously suppressed from the chart. Urine Urine specimen obtained by clean catch procedure / Unknown Non-blood Collection / Unknown 10/26/2024 12:15 AM EDT 10/26/2024 12:31 AM EDT Narrative [facility] - 10/26/2024 12:47 AM EDT Performed by manual method us Rebecca Landers MD LAB URINE ORDERABLES Final Resul t [facility] [address] [place] [address] from Last 3 Months Insurance Care Teams Machine Tool Operator Relationship Specialty Start Date End Date Fan Gilliam MD [address] [place] [address] [address] [place] [id number] PCP - General 09/03/20
--- OUTSIDE RECORDS SUMMARY | 2024-12-10 09:55 | XMS_ITS | Encounter Summary ---
Author Organization Healthcare Address [address] [place] [address] Care Team Providers Care Nursing Educator Name Role Phone Fan Gilliam MD Primary Care Provider [phone] Encounter Details Date Type Department Care Team (Latest Contact Info) Description 10/25/2024 Travel Social History Tobacco Use Types Packs/Day Years Used Date Smoking Tobacco: Former Smokeless Tobacco: Never Comments No Sex and Gender Information Value Date Recorded Sex Assigned at Not on file Legal Sex Female 6:34 PM EDT Gender Identity Not on file Sexual Orientation Not on file documented as of this encounter Plan of Treatment Not on file documented as of this encounter Visit Diagnoses Not on filedocumented in this encounter Care Teams Nursing Educator Relationship Specialty Start Date End Date Fan Gilliam MD [address] [place] [address] [address] [place] [address] PCP - General 09/03/20 documented as of this encounter
== END 2024-12-08 23:59 | disposition home or self-care (01) ==
LOC: LAB.DROPOF 12-10 09:44
PROVIDERS: PCP Obstetrics & Gynecology; Visit Provider Obstetrics & Gynecology
DX: Z01.419 Encounter for gynecological examination (general) (routine) without abnormal findings (principal); N89.8 Other specified noninflammatory disorders of vagina
CPT/HCPCS: 87491; 87529; 87591; 87661; 87798; 87801

== ENCOUNTER 2024-12-15 11:06 | Outpatient (CLI) | payer BC, SELFPAY ==
--- OUTSIDE RECORDS SUMMARY | 2024-10-25 23:54 | XMS_ITS | Encounter Summary ---
Author Organization Healthcare Address [address] [place] [address] Care Team Providers Care Skin Toggler Name Role Phone Fan Gilliam MD Primary Care Provider [phone] Reason for Visit * Reason Comments Difficulty Urinating Encounter Details Date Type Department Care Team (Late st Contact Info) Description 10/25/2024 11:54 PM EDT - 10/26/2024 2:16 AM EDT Emergency [facility] Emergency Department [address] [place] [address] Vaginal irritation (Primary Dx) Discharge [...] complaintsat this time. History provided by: Patient rn document improvement specialist used: No Patient History Past Medical History[1] [...] nursing note reviewed. Exam conducted with a information systems analyst present. Constitutional: General: She is not in [...] time. Psychiatric: Mood and Affect: Mood normal. [place] Coma Scale Score: 15 ED Course & MDM - Assessment: 23 y.o. female presents to ED with complaint of dysuria and vaginal irritation since earlier this morning. On arrival to the emergency department, the patient was awake, appropriately conversational, not inany acute distress, and nontoxic in appearance. Hypertensive, otherwise hemodynamically stable. examination performed with a information systems analyst which shows some external labial erythema and [...] new or worsening symptoms. Disposition Discharge AVS (Latvian Snapshot) - Printed 10/26/2024 Follow-Ups: Follow up [...] Procedure Laterality Date TONSILLECTOMY N/A Tonsillectomy from Girl Meets Dress [3] Family History Problem Relation Name Age of Onset Diabetes Maternal Grandfather Diabetes Other [4] Tobacco Use Smoking status: Former Smokeless tobacco: Never [5] Allergies Allergen Reactions Sulfacetamide Unknown - Patient states they do not know rxn details Bebeto Pena PA 10/26/24 0232 Cosigned by More Carlson MD at 11/01/2024 4:39 PM EDT Associated [...] Test Negative Negative 10/26/2024 12:53 AM EDT [facility] Blood Venous blood specimen / Unknown Venipuncture / Unknown 10/26/2024 12:28 AM EDT 10/26/2024 12:31 AM EDT Narrative [facility] - 10/26/2024 12:53 AM EDT Reference Range: Males and non- females: Negative. Bebeto PHAM LAB BLOOD ORDERABLES Final Result [facility] [address] [place] [address] * (ABNORMAL) CMP (10/26/2024 12:28 AM EDT) Glucose, Plasma 93 74 - 99 mg/dL 10/26/2024 12:53 AM EDT [facility] BUN, Plasma 6(L) 7 - 21 mg/dL 10/26/2024 12:53 AM EDT [facility] Creatinine, Plasma 0.69 0.60 - 1.10 mg/dL 10/26/2024 12:53 AM EDT [facility] BUN/Creatinine Ratio 9 10/26/2024 12:53 AM EDT [facility] Sodium, Plasma 138 136 - 145 mmol/L 10/26/2024 12:53 AM EDT [facility] Potassium, Plasma 3.8 3.6 - 4.9 mmol/L 10/26/2024 12:53 AM EDT [facility] Chloride, Plasma 102 97 - 107 mmol/L 10/26/2024 12:53 AM EDT [facility] CO2, Plasma 26 22 - 29 mmol/L 10/26/2024 12:53 AM EDT [facility] Anion Gap 10 6 - 16 mmol/L 10/26/2024 12:53 AM EDT [facility] Total Calcium, Plasma 9.9 8.9 - 10.2 mg/dL 10/26/2024 12:53 AM T [facility] Total Protein 7.5 6.3 - 7.9 g/dL 10/26/2024 12:53 AM T [facility] Albumin, Plasma 4.8 3.5 - 5.2 g/dL 10/26/2024 12:53 AM T [facility] AST, Plasma 14 10 - 35 U/L 10/26/2024 12:53 AM T [facility] ALT, Plasma 13 10 - 35 U/L 10/26/2024 12:53 AM T [facility] Alkaline Phosphatase, Plasma 83 35 - 104 U/L 10/26/2024 12:53 AM T [facility] Total Bilirubin, Plasma 0.3 0.2 - 1.1 mg/dL 10/26/2024 12:53 AM T [facility] eGFRcr 123.7 mL/min/1.7 3m*2 10/26/2024 12:53 AM T [facility] Comment:Reported eGFRcr in m L/min/1.73m2 is based the CKD-EPI 2020 equation that does not use a race coefficient. Blood Venous blood specimen / Unknown Venipuncture / Unknown 10/26/2024 12:28 AM EDT 10/26/2024 12:31 AM EDT Bebeto PHAM LAB BLOOD ORDERABLES Final Result [facility] [address] [place] [address] * (ABNORMAL) CBC w/diff (10/26/2024 12:28 AM EDT) WBC Count 12.19(H) 3.70 - 10.30 10*3/uL LAB HEMATOLOGY METHOD 10/26/2024 12:33 AM EDT [facility] RBC Count 4.23 3.90 - 5.20 10*6/uL LAB HEMATOLOGY METHOD 10/26/2024 12:33 AM EDT [facility] HGB 13.6 11.2 - 15.7 g/dL LAB HEMATOLOGY METHOD 10/26/2024 12:33 AM EDT [facility] HCT 40.2 34.0 - 45.0 % LAB HEMATOLOGY METHOD 10/26/2024 12:33 AM EDT [facility] Platelet Count 323 155 - 369 10*3/uL LAB HEMATOLOGY METHOD 10/26/2024 12:33 AM EDT [facility] MCV 95 79 - 98 fL LAB HEMATOLOGY METHOD 10/26/2024 12:33 AM EDT [facility] MCH 32.2(H) 26.0 - 32.0 pg LAB HEMATOLOGY METHOD 10/26/2024 12:33 AM EDT [facility] MCHC 33.8 30.7 - 35.5 g/dL LAB HEMATOLOGY METHOD 10/26/2024 12:33 AM EDT [facility] RDW 12.5 11.5 - 14.5 % LAB HEMATOLOGY METHOD 10/26/2024 12:33 AM EDT [facility] MPV 9.9 8.8 - 12.5 fL LAB HEMATOLOGY METHOD 10/26/2024 12:33 AM EDT [facility] nRBC 0.0 <=0.0 per 100 WBCs LAB HEMATOLOGY METHOD 10/26/2024 12:33 AM EDT [facility] Differential Type Automated LAB HEMATOLOGY METHOD 10/26/2024 12:33 AM EDT [facility] Neutrophils % 63 % LAB HEMATOLOGY METHOD 10/26/2024 12:33 AM EDT [facility] Lymphocytes % 29 % LAB HEMATOLOGY METHOD 10/26/2024 12:33 AM EDT [facility] Monocytes % 7 % LAB HEMATOLOGY METHOD 10/26/2024 12:33 AM EDT [facility] Eosinophils % 1 % LAB HEMATOLOGY METHOD 10/26/2024 12:33 AM EDT [facility] Basophils % 0 % LAB HEMATOLOGY METHOD 10/26/2024 12:33 AM EDT [facility] Immature Granulocytes % 0 % LAB HEMATOLOGY METHOD 10/26/2024 12:33 AM EDT [facility] Neutrophils Absolute 7.67(H) 1.60 - 6.10 10*3/uL LAB HEMATOLOGY METHOD 10/26/2024 12:33 AM EDT [facility] Lymphocytes Absolute 3.49 1.20 - 3.90 10*3/uL LAB HEMATOLOGY METHOD 10/26/2024 12:33 AM EDT [facility] Monocytes Absolute 0.82 0.30 - 0.90 10*3/uL LAB HEMATOLOGY METHOD 10/26/2024 12:33 AM EDT [facility] Eosinophils Absolute 0.12 0.00 - 0.50 10*3/uL LAB HEMATOLOGY METHOD 10/26/2024 12:33 AM EDT [facility] Basophils Absolute 0.04 0.00 - 0.10 10*3/uL LAB HEMATOLOGY METHOD 10/26/2024 12:33 AM EDT [facility] Immature Granulocytes Absolute 0.05 0.00 - 0.06 10*3/uL LAB HEMATOLOGY METHOD 10/26/2024 12:33 AM EDT [facility] Blood Venous blood specimen / Unknown Venipuncture / Unknown 10/26/2024 12:28 AM EDT 10/26/2024 12:31 AM EDT Narrative [facility] - 10/26/2024 12:33 AM EDT Therapeutic decision making should be based on absolute values, rather than percentages. Bebeto PHAM LAB BLOOD ORDERABLES Final Result [facility] [address] [place] [address] * Neisseria gonorrhea DNA by PCR (10/26/2024 12:20 AM EDT) Neisseria gonorrhea DNA PCR Result Not Detected Not Detected. 10/27/2024 12:54 PM EDT [facility] Urine Urine specimen obtained by clean catch procedure / Unknown Non-blood Collection / Unknown 10/26/2024 12:20 AM EDT 10/26/2024 12:32 AM EDT Narrative [facility] - 10/27/2024 12:54 PM EDT This test is performed by the Clew instrument for Real Time PCR C. trachomatis and N. gonorrhea. This test is FDA approved for use with endocervical, vaginal, and urine specimens. This test is used for clinical purposes. It should not be regarded as invesigational or for research. [facility] is certified under the Clinical Laboratory Improvement Amendments of 1988 (CLIA-88) as qualified to perform high complexity clinical laboratory testing. Bebeto PHAM [facility] MICROBIOLOGY - GENERAL ORDERABLES Final Result Performing Organization Address [facility] [[email or web address]] [place] [address] * Chlamydia trachomatis DNA by PCR (10/26/2024 12:20 AM EDT) Chlamydia trachomatis DNA PCR Result Not Detected Not Detected 10/27/2024 12:[address] [facility] Urine Urine specimen obtained by clean catch procedure / Unknown Non-blood Collection / Unknown 10/26/2024 12:20 AM EDT 10/26/2024 12:[address] [facility] - 10/27/2024 12:54 PM EDT This test is performed by the Corona m2000 instrument for Real Time PCR C. trachomatis and N. gonorrhea. This test is FDA approved for use with endocervical, vaginal, and urine specimens. This test is used for clinical purposes. It should not be regarded as invesigational or for research. [facility] is certified under the Clinical Laboratory Improvement Amendments of 1988 (CLIA-88) as qualified to perform high complexity clinical laboratory testing. Bebeto PHAM LAB MICROBIOLOGY - GENERAL ORDERABLES Final Result Performing Organization Address [facility] [[email or web address]] Co de Phone Number [facility] [address] [place] [address] * Urinalysis Microscopic Examination (10/26/2024 12:15 AM EDT) Urine Urine specimen obtained by clean catch procedure / Unknown Non-blood Collection / Unknown 10/26/2024 12:15 AM EDT 10/26/2024 12:31 AM EDT us Rebecca Landers MD LAB URINE ORDERABLES Final Resul t Performing Organization Address City/[facility] [[email or web address]] Co de Phone Number [facility] [address] [place] [address] * Urine Eagle Panel (10/26/2024 12:15 AM EDT) Extra Reflex urine culture not indicated 10/26/2024 2:01 AM EDT [facility] Urine Urine specimen obtained by clean catch procedure / Unknown Non-blood Collection / Unknown 10/26/2024 12:15 AM EDT 10/26/2024 12:31 AM EDT us Rebecca Landers MD LAB URINE ORDERABLES Final Resul t Performing Organization Address [facility] Phone Number [facility] [address] [place] [address] * (ABNORMAL) Urinalysis with reflex microscopic (Culture NOT Included) (10/26/2024 12:15 AM EDT) Color, Urine Yellow LAB URINALYSIS - AUTOMATED METHOD 10/26/2024 12:47 AM EDT [facility] Clarity, Urine Clear LAB URINALYSIS - AUTOMATED METHOD 10/26/2024 12:47 AM EDT [facility] Spec [place], Urine <1.005(L) 1.005 - 1.030 LAB URINALYSIS - AUTOMATED METHOD 10/26/2024 12:47 AM EDT [facility] pH, Urine 7.0 5.0 - 8.0 LAB URINALYSIS - AUTOMATED METHOD 10/26/2024 12:47 AM EDT [facility] Protein, Urine Negative Negative mg/dL LAB URINALYSIS - AUTOMATED METHOD 10/26/2024 12:47 AM EDT [facility] Glucose, Urine Negative Negative mg/dL LAB URINALYSIS - AUTOMATED METHOD 10/26/2024 12:47 AM EDT [facility] Ketones, Urine Negative Negative mg/dL LAB URINALYSIS - AUTOMATED METHOD 10/26/2024 12:47 AM EDT [facility] Blood, Urine Moderate(A) Negative LAB URINALYSIS - AUTOMATED METHOD 10/26/2024 12:47 AM EDT [facility] Bilirubin, Urine Negative Negative LAB URINALYSIS - AUTOMATED METHOD 10/26/2024 12:47 AM EDT [facility] Urobilinogen, Urine 0.2 0.2 to 1.0 mg/dL LAB URINALYSIS - AUTOMATED METHOD 10/26/2024 12:47 AM EDT [facility] Leukocytes, Urine Moderate(A) Negative LAB URINALYSIS - AUTOMATED METHOD 10/26/2024 12:47 AM EDT [facility] Nitrite, Urine Negative Negative LAB URINALYSIS - AUTOMATED METHOD 10/26/2024 12:47 AM EDT [facility] RBC, Urine 3 0 to 3 /HPF 10/26/2024 12:47 AM EDT [facility] Comment:This result was prev iously suppressed from the chart. WBC, Urine 6 - 10(A) 0 to 5 /HPF 10/26/2024 12:47 AM EDT [facility] Comment:This result was prev iously suppressed from the chart. Squamous Epithelial Cells 0 - 2 0 to 5 /HPF 10/26/2024 12:47 AM EDT [facility] Comment:This result was prev iously suppressed from the chart. Hyaline Casts 0 - 2 0 to 5 /LPF 10/26/2024 12:47 AM EDT [facility] Comment:This result was prev iously suppressed from the chart. Bacteria, Urine Negative Negative 10/26/2024 12:47 AM EDT [facility] Comment:This result was prev iously suppressed from the chart. Urine Urine specimen obtained by clean catch procedure / Unknown Non-blood Collection / Unknown 10/26/2024 12:15 AM EDT 10/26/2024 12:31 AM EDT Narrative [facility] - 10/26/2024 12:47 AM EDT Performed by manual method us Rebecca Landers MD LAB URINE ORDERABLES Final Resul t [facility] [address] [place] [address] documented in this encounter Visit Diagnoses Diagnosis Vaginal irritation- Primary Pruritus of genital organs documented in this encounter Care Teams Skin Toggler Relationship Specialty Start Date End Date Fan Gilliam MD [address] [place] [address] #1 [address] [place] [id number] PCP - General 09/03/20 documented as of this encounter
[2024-12-15 11:37] LABS: Hematocrit 43.1 % (37.0-47.0); Hemoglobin 14.3 g/dL (12.2-16.2); Immature Granulocytes % 0.3 %; Mean Corpuscular HGB Conc 33.2 g/dL (31.8-35.4); Mean Corpuscular Hemoglobin 31.8 pg (27.0-31.2); Mean Corpuscular Volume 96.0 fl (81-99); Nucleated Red Blood Cells % 0 %; Platelet Count 308 K/mm3 (142-424); Red Blood Count 4.49 M/mm3 (4.20-5.40); Red Cell Distribution Width-SD 46.2 fL; White Blood Count 8.0 K/mm3 (4.8-10.8)
--- OUTSIDE RECORDS SUMMARY | 2024-12-15 11:53 | XMS_ITS | Encounter Summary ---
Author Organization Healthcare Address [address] [place] [address] Care Team Providers Care Racecourse Barrier Attendant Name Role Phone Fan Gilliam MD Primary Care Provider [phone] Encounter Details Date Type Department Care Team [...] on filedocumented in this encounter Care Teams Racecourse Barrier Attendant Relationship Specialty Start Date End Date Fan Gilliam MD [address] [place] [address] [address] [place] [address] PCP - General 09/03/20 documented as of this encounter
--- OUTSIDE RECORDS SUMMARY | 2024-12-15 11:54 | XMS_ITS | Patient Health Record ---
Author Organization [facility] Address [address] [place] [address] Support Name Relationship Address Phone Patel Bowers Emergency Contact [address] [place] [address] Jamila Bowers Guarantor Unknown Reason For Referral No Information Problems Problem Type SNOMED Code ICD Code Onset Dates Problem Status W/U Status Risk Notes Problem Fibromyalgia (424002623) Fibromyalgia (M79.7) Active confirmed Problem Urge incontinence of urine (66777252) Urge incontinence (N39.41) Active confirmed Problem Moderate recurrent major depression (37123821) Moderate episode of recurrent major depressive disorder (F33.1) Active confirmed Problem Pain in female genitalia on intercourse (41874772) Dyspareunia in female (N94.10) Active confirmed Problem Generalized anxiety disorder (24651467) LUCILLE (generalized anxiety disorder) (F41.1) Active confirmed Problem Postural orthostatic tachycardia syndrome (disorder) (026634867) POTS (postural orthostatic tachycardia syndrome) (I49.8) Active confirmed Plan Of Treatment No Information
--- OUTSIDE RECORDS SUMMARY | 2024-12-15 11:54 | XMS_ITS | Clinical Summary ---
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 Phone Fan Gilliam MD Primary Care Provider [phone] Allergies Active Allergy Reactions Criticality Noted Date Comments Sulfacetamide Unknown - Patient st ates they do not know rxn details Low 02/19/2018 Encounters Date Type Department Care Team Description 10/25/2024 11:54 PM EDT - 10/26/2024 2:16 AM EDT Emergency [facility] S Emergency Department [address] [place] [address] Vaginal irritation (Primary Dx) Discharge [...] LAB HEMATOLOGY METHOD 10/26/2024 12:33 AM EDT [facility] RBC Count 4.23 3.90 - 5.20 10*6/uL LAB HEMATOLOGY METHOD 10/26/2024 12:33 AM EDT [facility] HGB 13.6 11.2 - 15.7 g/dL LAB HEMATOLOGY METHOD 10/26/2024 12:33 AM EDT [facility] HCT 40.2 34.0 - 45.0 % LAB HEMATOLOGY METHOD 10/26/2024 12:33 AM EDT [facility] Platelet Count 323 155 - 369 10*3/uL LAB HEMATOLOGY METHOD 10/26/2024 12:33 AM EDT [facility] MCV 95 79 - 98 fL LAB HEMATOLOGY METHOD 10/26/2024 12:33 AM EDT [facility] MCH 32.2(H) 26.0 - 32.0 pg LAB HEMATOLOGY METHOD 10/26/2024 12:33 AM EDT [facility] MCHC 33.8 30.7 - 35.5 g/dL LAB HEMATOLOGY METHOD 10/26/2024 12:33 AM EDT [facility] RDW 12.5 11.5 - 14.5 % LAB HEMATOLOGY METHOD 10/26/2024 12:33 AM EDT [facility] MPV 9.9 8.8 - 12.5 fL LAB HEMATOLOGY METHOD 10/26/2024 12:33 AM EDT [facility] nRBC 0.0 <=0.0 per 100 WBCs LAB HEMATOLOGY METHOD 10/26/2024 12:33 AM EDT [facility] Differential Type Automated LAB HEMATOLOGY METHOD 10/26/2024 12:33 AM EDT [facility] Neutrophils % 63 % LAB HEMATOLOGY METHOD 10/26/2024 12:33 AM EDT [facility] Lymphocytes % 29 % LAB HEMATOLOGY METHOD 10/26/2024 12:33 AM EDT [facility] Monocytes % 7 % LAB HEMATOLOGY METHOD 10/26/2024 12:33 AM EDT [facility] Eosinophils % 1 % LAB HEMATOLOGY METHOD 10/26/2024 12:33 AM EDT [facility] Basophils % 0 % LAB HEMATOLOGY METHOD 10/26/2024 12:33 AM EDT [facility] Immature Granulocytes % 0 % LAB HEMATOLOGY METHOD 10/26/2024 12:33 AM EDT [facility] Neutrophils Absolute 7.67(H) 1.60 - 6.10 10*3/uL LAB HEMATOLOGY METHOD 10/26/2024 12:33 AM EDT [facility] Lymphocytes Absolute 3.49 1.20 - 3.90 10*3/uL LAB HEMATOLOGY METHOD 10/26/2024 12:33 AM EDT [facility] Monocytes Absolute 0.82 0.30 - 0.90 10*3/uL LAB HEMATOLOGY METHOD 10/26/2024 12:33 AM EDT [facility] Eosinophils Absolute 0.12 0.00 - 0.50 10*3/uL LAB HEMATOLOGY METHOD 10/26/2024 12:33 AM EDT [facility] Basophils Absolute 0.04 0.00 - 0.10 [...] BLOOD ORDERABLES Final Result Performing Organization Address City/[facility]/ZIP Co de Phone Number [facility] [address] [place] [address] * hCG qualitative (10/26/2024 12:28 AM EDT) Test Negative Negative 10/26/2024 12:53 AM EDT [facility] Blood Venous blood specimen / Unknown Venipuncture / Unknown 10/26/2024 12:28 AM EDT 10/26/2024 12:31 AM EDT Narrative [facility] - 10/26/2024 12:53 AM EDT Reference Range: Males and non- females: Negative. Mirela PH[facility] LAB BLOOD ORDERABLES Final Result Performing Organization Address City/[facility]/ZIP Co de Phone Number [facility] [address] [place] [address] * (ABNORMAL) CMP (10/26/2024 12:28 AM EDT) Glucose, Plasma 93 74 - 99 mg/dL 10/26/2024 12:53 AM EDT [facility] BUN, Plasma 6(L) 7 - 21 mg/dL 10/26/2024 12:53 AM EDT [facility] Creatinine, Plasma 0.69 0.60 - 1.10 mg/dL 10/26/2024 12:53 AM EDT [facility] BUN/Creatinine Ratio 9 10/26/2024 12:53 AM EDT [facility] Sodium, Plasma 138 136 - 145 mmol/L 10/26/2024 12:53 AM EDT [facility] Potassium, Plasma 3.8 3.6 - 4.9 mmol/L 10/26/2024 12:53 AM EDT [facility] Chloride, Plasma 102 97 - 107 mmol/L 10/26/2024 12:53 AM EDT [facility] CO2, Plasma 26 22 - 29 mmol/L 10/26/2024 12:53 AM EDT [facility] Anion Gap 10 6 - 16 mmol/L 10/26/2024 12:53 AM EDT [facility] Total Calcium, Plasma 9.9 8.9 - 10.2 mg/dL 10/26/2024 12:53 AM EDT [facility] Total Protein 7.5 6.3 - 7.9 g/dL 10/26/2024 12:53 AM EDT [facility] Albumin, Plasma 4.8 3.5 - 5.2 g/dL 10/26/2024 12:53 AM EDT [facility] AST, Plasma 14 10 - 35 U/L 10/26/2024 12:53 AM EDT [facility] ALT, Plasma 13 10 - 35 U/L 10/26/2024 12:53 AM EDT [facility] Alkaline Phosphatase, Plasma 83 35 - 104 U/L 10/26/2024 12:53 AM EDT [facility] Total Bilirubin, Plasma 0.3 0.2 - 1.1 mg/dL 10/26/2024 12:53 AM EDT [facility] eGFRcr 123.7 mL/min/1.7 3m*2 10/26/2024 12:53 AM EDT [facility] Comment:Reported eGFRcr in m L/min/1.73m2 is based the CKD-EPI 2020 equation that does not use a race coefficient. Blood Venous blood specimen / Unknown Venipuncture / Unknown 10/26/2024 12:28 AM EDT 10/26/2024 12:31 AM EDT us Mirela [facility] LAB BLOOD ORDERABLES Final Result [facility] [address] [place] [address] * Chlamydia trachomatis DNA by PCR (10/26/2024 12:20 AM EDT) Chlamydia trachomatis DNA PCR Result Not Detected Not Detected 10/27/2024 12:54 PM EDT [facility] Urine Urine specimen obtained by clean catch procedure / Unknown Non-blood Collection / Unknown 10/26/2024 12:20 AM EDT 10/26/2024 12:32 AM EDT Narrative [facility] - 10/27/2024 12:54 PM EDT This test is performed by the [employer] instrument for Real Time PCR C. trachomatis and N. gonorrhea. This test is FDA approved for use with endocervical, vaginal, and urine specimens. This test is used for clinical purposes. It should not be regarded as invesigational or for research. The [facility]biology [facility] is certified under the Clinical Laboratory Improvement Amendments of 1988 (CLIA-88) as qualified to perform high complexity clinical laboratory testing. Mirela PHAM LAB MICROBIOLOGY - GENERAL ORDERABLES Final Result Performing Organization Address City/State/[facility] Co de Phone Number [facility] [address] [place] [id number] * Neisseria gonorrhea DNA by PCR (10/26/2024 12:20 AM EDT) Neisseria gonorrhea DNA PCR Result Not Detected Not Detected. 10/27/2024 12:54 PM EDT [facility] Urine Urine specimen obtained by clean catch procedure / Unknown Non-blood Collection / Unknown 10/26/2024 12:20 AM EDT 10/26/2024 12:32 AM EDT Narrative [facility] - 10/27/2024 12:54 PM EDT This test is performed by the [employer] m2000 instrument for Real Time PCR C. trachomatis and N. gonorrhea. This test is FDA approved for use with endocervical, vaginal, and urine specimens. This test is used for clinical purposes. It should not be regarded as invesigational or for research. The [facility] is certified under the Clinical Laboratory Improvement Amendments of 1988 (CLIA-88) as qualified to perform high complexity clinical laboratory testing. Mirela PHAM LAB MICROBIOLOGY - GENERAL ORDERABLES Final Result Performing Organization Address City/[facility]/ZIP Co de Phone Number [facility] [address] [place] [address] * Urine Eagle Panel (10/26/2024 12:15 AM EDT) Extra Reflex urine culture not indicated 10/26/2024 2:01 AM EDT [facility] Urine Urine specimen obtained by clean catch procedure / Unknown Non-blood Collection / Unknown 10/26/2024 12:15 AM EDT 10/26/2024 12:31 AM EDT Rebecca Landers MD LAB URINE ORDERABLES Final Resul t Performing Organization Address [facility] Co de Phone Number [facility] [address] [place] [address] * Urinalysis Microscopic Examination (10/26/2024 12:15 AM EDT) Urine Urine specimen obtained by clean catch procedure / Unknown Non-blood Collection / Unknown 10/26/2024 12:15 AM EDT 10/26/2024 12:31 AM EDT Rebecca Landers MD LAB URINE ORDERABLES Final Resul t Performing Organization Address [facility] de Phone Number [facility] [address] [place] [address] * (ABNORMAL) Urinalysis with reflex microscopic (Culture NOT Included) (10/26/2024 12:15 AM EDT) Color, Urine Yellow LAB URINALYSIS - AUTOMATED METHOD 10/26/2024 12:47 AM EDT [facility] Clarity, Urine Clear LAB URINALYSIS - AUTOMATED METHOD 10/26/2024 12:47 AM EDT [facility] Spec [place], Urine <1.005(L) 1.005 - 1.030 LAB URINALYSIS - AUTOMATED METHOD 10/26/2024 12:47 AM EDT [facility] pH, Urine 7.0 5.0 - 8.0 LAB URINALYSIS - AUTOMATED METHOD 10/26/2024 12:47 AM EDT [facility] Protein, Urine Negative Negative mg/dL LAB URINALYSIS - AUTOMATED METHOD 10/26/2024 12:47 AM EDT [facility] Glucose, Urine Negative Negative mg/dL LAB URINALYSIS - AUTOMATED METHOD 10/26/2024 12:47 AM EDT [facility] Ketones, Urine Negative Negative mg/dL LAB URINALYSIS - AUTOMATED METHOD 10/26/2024 12:47 AM EDT [facility] Blood, Urine Moderate(A) Negative LAB URINALYSIS - AUTOMATED METHOD 10/26/2024 12:47 AM EDT [facility] Bilirubin, Urine Negative Negative LAB URINALYSIS - AUTOMATED METHOD 10/26/2024 12:47 AM EDT [facility] Urobilinogen, Urine 0.2 0.2 to 1.0 mg/dL LAB URINALYSIS - AUTOMATED METHOD 10/26/2024 12:47 AM EDT [facility] Leukocytes, Urine Moderate(A) Negative LAB URINALYSIS - AUTOMATED METHOD 10/26[facility]2024 12:[facility] Nitrite, Urine Negative Negative LAB URINALYSIS - AUTOMATED METHOD 10/26/2024 12:[facility] RBC, Urine 3 0 to 3 /HPF 10/26/2024 12:47 AM EDT [facility] Comment:This result was prev iously suppressed from the chart. WBC, Urine 6 - 10(A) 0 to 5 /HPF 10/26/2024 12:47 AM EDT [facility] Comment:This result was prev iously suppressed from the chart. Squamous Epithelial Cells 0 - 2 0 to 5 /HPF 10/26/2024 12:47 AM EDT [facility] Comment:This result was prev iously suppressed from the chart. Hyaline Casts 0 - 2 0 to 5 /LPF 10/26/2024 12:47 AM EDT [facility] Comment:This result was prev iously suppressed from the chart. Bacteria, Urine Negative Negative 10/26/2024 12:47 AM EDT [facility] Comment:This result was prev iously suppressed from the chart. 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
[2024-12-15 12:28] LABS: Cholesterol 152 mg/dl (140-200); HDL Cholesterol 43 mg/dl (40-60); Iron 109 ug/dL (37-170); Triglycerides 164 mg/dl (30-150)
[2024-12-15 12:38] LABS: Total Iron Binding Capacity 337 ug/dL (265-497)
[2024-12-15 12:59] LABS: Thyroid Stimulating Hormone 0.62 uIU/mL (0.465-4.68)
[2024-12-15 13:03] LABS: Ferritin 20.8 ng/ml (6.24-137)
[2024-12-15 13:16] LABS: Hepatitis C Ab Qual. W/ RFX NEGATIVE (Negative)
[2024-12-15 13:21] LABS: 25-OH Vitamin D, Total 36.0 ng/mL (30-100)
[2024-12-15 17:43] LABS: Vitamin B12 401 pg/mL (239-931)
[2024-12-16 07:10] LABS: Hepatitis B Surface Antigen Negative (Negative)
[2024-12-16 07:39] LABS: RPR W/RFX Titers Nonreactive (Nonreactive)
[2024-12-16 08:13] LABS: FSH 3.6 mIU/mL (.); LH 4.5 mIU/mL (.)
[2024-12-16 13:11] LABS: Antinuclear Antibodies (ANA) Negative (Negative)
[2024-12-16 15:23] LABS: Cortisol,AM 14.2 ug/dL (6.2-19.4)
== END 2024-12-15 23:59 | disposition home or self-care (01) ==
LOC: LAB 11:07
PROVIDERS: Obstetrics & Gynecology; PCP Nurse Practitioner Family; Visit Provider Nurse Practitioner Family
DX: Z01.419 Encounter for gynecological examination (general) (routine) without abnormal findings (principal); E55.9 Vitamin D deficiency, unspecified; G90.A Postural orthostatic tachycardia syndrome [POTS]; N30.10 Interstitial cystitis (chronic) without hematuria; M35.7 Hypermobility syndrome; E61.1 Iron deficiency; E53.8 Deficiency of other specified B group vitamins; R79.89 Other specified abnormal findings of blood chemistry; N97.9 Female infertility, unspecified; N89.8 Other specified noninflammatory disorders of vagina
CPT/HCPCS: 36415; 80061; 82306; 82533; 82607; 82670; 82728; 83001; 83002; 83540; 83550; 84144; 84402; 84403; 84443; 85025; 86592; 86803; 87340; 87389